=== PATIENT | male | born 1960 | race African-American/Black ===

== ENCOUNTER 2016-12-26 16:27 | Inpatient (IN) | payer OTHER ==
[~2016-12-26] VITALS: Ht 175.3 cm; Wt 93.9 kg
[2016-12-26 17:18] LABS: BASOPHIL % 0.1 % (0-2); PLATELET COUNT 239 x10^3mcL (130-400); RED CELL DISTRIBUTION WIDTH 12.7 % (11.5-14.5)
[2016-12-26 17:26] LABS: CARBON DIOXIDE 33.5 mmol/L (21-32); CHLORIDE SERUM 105 mmol/L (98-107); CREATININE SERUM 1.1 mg/dL (0.7-1.3); GFR1 > 60 mL/min; GLUCOSE SERUM 113 mg/dL (74-106); POTASSIUM SERUM 3.5 mmol/L (3.5-5.1); SODIUM SERUM 143 mmol/L (136-145)
[2016-12-26 17:31] LABS: ALBUMIN 4.1 g/dL (3.4-5.0); ALKALINE PHOSPHATASE 53 U/L (46-116); ALT/SGPT 33 U/L (16-63); AST/SGOT 21 U/L (15-37); BILIRUBIN TOTAL 0.52 mg/dL (0.20-1.00); TOTAL PROTEIN, SERUM 7.1 g/dL (6.4-8.2)
[2016-12-26] MEDS ORDERED: CYMBALTA60 M1 PO (17:50)
[2016-12-26 20:23] LABS: MAGNESIUM 1.9 mg/dL (1.8-2.4)
[2016-12-26 20:24] LABS: CHOLESTEROL/HDL RATIO 4.4
[2016-12-26 20:33] LABS: T3 TOTAL 0.91 ng/mL
[2016-12-26 20:34] VITALS: BP 90/53
[2016-12-26 20:35] LABS: FREE T4 0.78 ng/dL (0.76-1.46); FREE THYROXINE INDEX 2.6 ug/dL (1.4-4.5); T4(THYROXINE) 7.3 ug/dL (4.7-13.3)
[2016-12-26 20:40] VITALS: Ht 175.3 cm; Wt 93.9 kg
[2016-12-26 20:41] VITALS: BP 90/53
[2016-12-26 22:25] LABS: microscopic required? YES; urine erythrocyte NEGATIVE (NEGATIVE)
[2016-12-26 22:35] LABS: AMPHETAMINE QUAL UR NONE DETECTED (NEG <=1000)
[2016-12-26 22:43] VITALS: BP 125/69
[2016-12-27 01:20] LABS: BASOPHIL % 0.2 % (0-2); PLATELET COUNT 256 x10^3mcL (130-400); RED CELL DISTRIBUTION WIDTH 12.8 % (11.5-14.5)
[2016-12-27 05:32] VITALS: BP 122/82
[2016-12-27 07:19] LABS: CALCIUM 8.6 mg/dL (8.5-10.1); CARBON DIOXIDE 29.7 mmol/L (21-32); CHLORIDE SERUM 104 mmol/L (98-107); CREATININE SERUM 0.9 mg/dL (0.7-1.3); GFR1 > 60 mL/min; GLUCOSE SERUM 107 mg/dL (74-106); POTASSIUM SERUM 4.1 mmol/L (3.5-5.1); SODIUM SERUM 141 mmol/L (136-145)
[2016-12-27 09:18] VITALS: BP 123/85
[2016-12-27 11:05] VITALS: BP 114/84
[2016-12-27 14:35] VITALS: BP 124/86
[2016-12-27 16:37] VITALS: BP 131/80
[2016-12-27 21:49] VITALS: BP 124/83
[2016-12-28 05:28] VITALS: BP 127/83
[2016-12-28 07:19] LABS: BASOPHIL % 0.2 % (0-2); PLATELET COUNT 236 x10^3mcL (130-400); RED CELL DISTRIBUTION WIDTH 12.8 % (11.5-14.5)
[2016-12-28 07:26] LABS: CALCIUM 8.8 mg/dL (8.5-10.1); CARBON DIOXIDE 29.6 mmol/L (21-32); CHLORIDE SERUM 108 mmol/L (98-107); GFR1 > 60 mL/min; GLUCOSE SERUM 100 mg/dL (74-106); POTASSIUM SERUM 3.6 mmol/L (3.5-5.1); SODIUM SERUM 146 mmol/L (136-145)
[2016-12-28 10:20] VITALS: BP 128/89
[2016-12-28] MEDS ORDERED: APAP/HYDROCODON1 T13 PO (11:21)
[2016-12-28] MEDS ORDERED: PROTONIX40 MG PO (11:22)
[2016-12-28] MEDS ORDERED: COLACE100 MG PO (11:25)
[2016-12-28 12:59] VITALS: BP 122/89
[2016-12-28 14:41] VITALS: BP 112/80
== END 2016-12-28 16:01 | disposition home or self-care (01) | DRG 368 ==
LOC: ED 16:27 → DU 19:32
PROVIDERS: Emergency Medicine; Internal Medicine Gastroenterology; ADMIT Student in an Organized Health Care Education/Training Program
PROC: 0W3P8ZZ Control Bleeding in Gastrointestinal Tract, Via Natural or Artificial Opening Endoscopic (ICD-10-PCS; principal; 2016-12-27 10:15)
PROC: 0DB68ZX Excision of Stomach, Via Natural or Artificial Opening Endoscopic, Diagnostic (ICD-10-PCS; 2016-12-27 10:15)
PROC: 0DBH8ZX Excision of Cecum, Via Natural or Artificial Opening Endoscopic, Diagnostic (ICD-10-PCS; 2016-12-28)
PROC: 0DBF8ZX Excision of Right Large Intestine, Via Natural or Artificial Opening Endoscopic, Diagnostic (ICD-10-PCS; 2016-12-28)
DX: K22.6 Gastro-esophageal laceration-hemorrhage syndrome (principal); N17.0 Acute kidney failure with tubular necrosis; K22.10 Ulcer of esophagus without bleeding; K63.3 Ulcer of intestine; K44.9 Diaphragmatic hernia without obstruction or gangrene; R80.9 Proteinuria, unspecified; E78.5 Hyperlipidemia, unspecified; F41.9 Anxiety disorder, unspecified; E66.9 Obesity, unspecified; Z68.30 Body mass index [BMI] 30.0-30.9, adult
CPT/HCPCS: 43235; 45378; 83880; 84439; C9113; J1200; J1610; J2060; J2250; J2310; J2405; J2765; J3010; J3490; J7030; Q0092